=== PATIENT | male | born 1990 | race African-American/Black ===

== ENCOUNTER 2019-04-07 08:35 | Emergency (ER) | payer OTHER ==
[~2019-04-07] VITALS: Ht 182.9 cm; Wt 84.8 kg
[2019-04-07] MEDS ORDERED: ONDANSETRON 4 MG ORAL DISINTEGRATING TAB (Q0162 PER 1MG) PO ONE (09:30)
[2019-04-07 10:08] LABS: INFLUENZA A AMPLIFICATION NEGATIVE (NEGATIVE); INFLUENZA B AMPLIFICATION POSITIVE (NEGATIVE)
[2019-04-07] MEDS ORDERED: ONDA4TAB6 PO (10:13)
[2019-04-07 10:21] VITALS: BP 135/81
== END 2019-04-07 10:22 | disposition home or self-care (01) ==
LOC: M ED 08:35
DX: J10.1 Influenza due to other identified influenza virus with other respiratory manifestations (principal)
CPT/HCPCS: 87502; 87880; 99284; Q0162